=== PATIENT | female | born 1980 | race Caucasian/White ===

== ENCOUNTER 2024-11-21 13:16 | Emergency (ER) | payer SELFPAY ==
[2024-11-21] VITALS (13 sets, daily range): BP systolic 121–135; BP diastolic 79–89; PULSE 74–100; RESP 14–32; TEMP 36.6; O2SAT 96–98
--- NOTE | 2024-11-21 13:15 | RT.EKG_ITS ---
APPROVED REPORT Exam: Resting ECG Reason for Exam: Chest Pain Patient Location: E HR:84 bpm ECG Measurements Heart Rate 84 AXIS MS 139 P 64 QRSd 77 QRS 54 QT 366 T 20 QTc 434 Conclusion Sinus rhythm...normal P axis, V-rate 60- 99 Left atrial enlargement...P, P'>60mS, <-0.15mV V1 I have reviewed and interpreted ECG and agree with software generated interpretation.
--- NOTE | 2024-11-21 13:15 | DI.RAD_ITS ---
Exam(s) XR PORTABLE CHEST AP EXAM: XR PORTABLE CHEST AP CLINICAL HISTORY: cough, chest pain. TECHNIQUE: 2D digital imaging was performed. COMPARISON: No exams were available for comparison FINDINGS: Single AP portable view. Heart size is upper normal. The mediastinum is not widened. Lungs are clear. No infiltrates nor obvious pleural effusions. IMPRESSION: No acute pulmonary findings on this single AP portable view of the chest. DATA REPOSITORY: RADIATION DOSE DELIVERED:
[2024-11-21 13:50] LABS: Abs Immature Grans 0.04 10^3/uL (0.0-0.06); Absolute Basophil Count 0.04 10^3/uL (0.0-0.2); Absolute Eosinophil Count 0.23 10^3/uL (0.0-0.7); Absolute Lymphocyte Count 2.33 10^3/uL (1.2-3.4); Absolute Monocyte Count 0.52 10^3/uL (0.1-0.8); Absolute Neutrophil Count 3.44 10^3/uL (1.2-6.7); Basophils % 0.6 %; Eosinophils % 3.5 %; HCT 43.8 % (36.0-46.0); HGB 14.9 g/dL (11.2-15.7); Immature Grans % 0.6 %; Lymphocytes % 35.3 %; MCH 30.6 pg (27.0-33.0); MCV 90 fL (80-95); MPV 9.5 fL (8.0-11.0); Monocytes % 7.9 %; Neutrophils % 52.1 %; Platelet Count 262 10^3/uL (130-400); RBC 4.87 10^6/uL (3.93-5.22); RDW 12.8 % (11.7-14.6); RDW-SD 42.5 fL
--- NOTE | 2024-11-21 13:52 | ED.GENADUL_ITS ---
Discharge Plan Disposition Patient Disposition: Home Condition: Good Discharge Details Clinical Impression: Chest discomfort Primary Care Provider: Brea Escalante ED Provider: Tee Menendez Home Meds and New Rx's Prescriptions: No Action No Known Home Meds Discharge Instructions Instructions: Chest Pain, Adult ED Additional Instructions: At this time your workup has returned reassuring. There is no evidence of blood clot, pneumonia, cardiac abnormality, pancreatitis or other significant concerning problem. Your bedside echo showed no significant abnormality on our limited assessment. Please follow-up closely with your primary care provider. It may be prudent for further 24 to 48-hour Holter monitoring to evaluate for any dysrhythmia or atypical beats of your heart. If you notice any worsening of your symptoms, or any new symptoms such as vomiting, diarrhea, fever, chills, shortness of breath, chest pain, numbness, weakness, or fainting , please return immediately to the emergency department for reevaluation. Please follow up with your primary care provider as soon as possible for reassessment and reevaluation. As always, it was a pleasure participating in your medical care today. Referrals: Brea Escalante [Primary Care Provider] - Discharge Data Discharge Date/Time-TO BE ENTERED AT DEPARTURE: 11/21/24 15:51 HPI General Date/Time Provider Initiated Documentation: 11/21/24 13:26 . HPI Narrative: 43-year-old female with no significant past medical history presents today for evaluation of left-sided chest discomfort. Patient states that last night before going to bed she developed a pulsatile achy pain in her left chest that would last for about 30 seconds and then dissipate, it would come on and off every few minutes. There did not appear to be any aggravating or relieving factors. It eventually slowly improved. She went to bed and when she woke up she noticed that there was still a mild component but it was much more diminished compared to the previous night. Additionally she also noticed some achiness in her left chest today that seems to be perpetual compared to the intermittent symptoms are only present before. She denies any exertional discomfort, pleuritic component. Denies PE risk factors such as recent long car rides, immobilization, recent surgery, prior history of DVT or PE, family history of PE or DVT, morbid obesity, exogenous estrogen and smoking, hemoptysis, history of cancer. No other complaints at this time. Patient does smoke 2 to 3 cigarettes a day. She denies any personal history of lung cancer or cardiac disease. She does have distant family members with cardiac disease. No other complaints at this time. No calf tenderness. No cough or fever. Pain did not radiate to her arm neck or shoulders. Related Data Home Medications ?Medication ?Instructions ?Recorded ?Confirmed Unknown [No Known Home Meds] 11/21/24 11/21/24 Allergies Allergy/AdvReac Type Severity Reaction Status Date / Time Sulfa (Sulfonamide Allergy HIVES Unverified 11/21/24 13:24 Antibiotics) venom-honey bee (bee venom Allergy EXTREME Unverified 11/21/24 13:24 (honey bee)) SWELLING General Stated Complaint: Chest Pain BRIANA: 3 Exam Narrative Exam Narrative: 1.Const: Well-nourished, Well-developed, appearing stated age 2.Eyes: PERRL, no conjunctival injection, and symmetrical lids. 3.ENT: Atraumatic external nose and ears. Moist MM. Neck: Symmetric, trachea midline, No thyromegaly. 4.CVS: +S1/S2, Peripheral pulses 2+ and equal in all extremities. Brisk capillary refill in all extremities. Mild achiness on palpation of the left anterior chest wall, pain is not worsened with activation or movement of the pectoralis major or minor musculature. 5.RESP: Unlabored respiratory effort. Clear to auscultation bilaterally. No wheezes rales or rhonchi 6.GI: Soft, Nontender/Nondistended, No hepatosplenomegaly. No guarding or rebound. 7.MSK: Normocephalic/Atraumatic, Extremities w/o deformity or ttp No cyanosis or clubbing, Normal movement of all extremities 8.Skin: Warm, Dry. No rashes or lesions. No evidence of shingles 9.Neuro: appointment specialist II-XII grossly intact. Sensation grossly intact, no focal neurologic deficits. 10.Psych: (AAO) x3. Appropriate mood and affect Course Vital Signs Vital signs: Vital Signs Temperature 36.6 C 11/21/24 13:21 Pulse 100 H 11/21/24 13:21 Respiratory Rate 14 11/21/24 13:21 Blood Pressure 135/89 11/21/24 13:21 Pulse Oximetry 98 11/21/24 13:21 Temperature 36.6 C 11/21/24 13:21 Temperature Source Oral 11/21/24 13:21 Pulse 100 H 11/21/24 13:21 Respiratory Rate 14 11/21/24 13:21 Respiratory Effort Normal, Non-Labored 11/21/24 13:41 Respiratory Depth Normal 11/21/24 13:41 Respiratory Pattern Normal 11/21/24 13:41 Blood Pressure 135/89 11/21/24 13:21 Blood Pressure Position Sitting 11/21/24 13:21 Pulse Oximetry 98 11/21/24 13:21 Oxygen Delivery Method Room Air 11/21/24 13:21 Oxygen Flow Rate 0 11/21/24 13:21 Pain Level 5 11/21/24 13:21 Comment denies otc medications for symptoms 11/21/24 13:21 Medical Decision Making 43-year-old female with no significant past medical history presents today for evaluation of left-sided chest discomfort. Patient states that last night before going to bed she developed a pulsatile achy pain in her left chest that would last for about 30 seconds and then dissipate, it would come on and off every few minutes. There did not appear to be any aggravating or relieving factors. It eventually slowly improved. She went to bed and when she woke up she noticed that there was still a mild component but it was much more diminished compared to the previous night. Additionally she also noticed some achiness in her left chest today that seems to be perpetual compared to the intermittent symptoms are only present before. She denies any exertional dis comfort, pleuritic component. Denies PE risk factors such as recent long car rides, immobilization, recent surgery, prior history of DVT or PE, family history of PE or DVT, morbid obesity, exogenous estrogen and smoking, hemoptysis, history of cancer. No other complaints at this time. Patient does smoke 2 to 3 cigarettes a day. She denies any personal history of lung cancer or cardiac disease. She does have distant family members with cardiac disease. No other complaints at this time. No calf tenderness. No cough or fever. Pain did not radiate to her arm neck or shoulders. Exam demonstrates well-appearing female, no guarding or rebound. No rash. No pulse asymmetry. No pain in the left pectoralis region with activation of pectoralis major minor. Reproducible pain though is noted with generalized mild palpation of the left chest wall anteriorly. Differential is broad but includes Prinzmetal's angina, precordial catch syndrome, less likely pneumothorax or PE. Cardiac ACS is unlikely given lack of risk factors. However we will evaluate for concerning etiologies, give aspirin, Lidoderm patch, get a bedside echo, monitor closely and reassess. EKG shows no evidence of STEMI. 4:44 PM Chest x-ray negative for acute process, bedside echo and bedside pulmonary exam from ultrasound shows no evidence of acute abnormality, distention, pericardial tamponade, effusion or other abnormality. Laboratory workup shows normal D- dimer, patient negative both naturally with a level of 258, as well as demonstrating no active clinical signs to demonstrate concern for significant PE. Electrolytes normal, troponin x 2 normal. Both less than 4, lipase normal. Patient feels well, pain notably improved. No evidence to suggest ACS, or other acute life-threatening etiology. Patient will be discharged home. Recommend potential Holter at home. Patient declined Lidoderm patch. I have extensively reviewed the treatment plan and discharge instructions with the patient. I have addressed all patient concerns at this time. The patient was made aware of what symptoms to monitor for that would warrant a return to the emergency department. Discussed the plan with the patient, they demonstrate verbal understanding and agreement with our assessment and plan at this time. The documentation in this chart was dictated using [employer] dictation software. Please excuse any dictation errors. Quality:SDOH Health Related Social Needs: No Data to Display PFSH All Active Problems (Updated 11/21/24 @ 15:42 by Tee Menenedz DO) Chest discomfort (Acute) Vaginal delivery (Active 05/12/13) 3RD DEGREE TEAR False labor (Active 05/10/13) Social History Smoking/Tobacco Use Status: Former Tobacco Use Smoking risk assessment performed?: Yes Alcohol Intake: never Drug use: Never Substance use type: does not use Housing: house Do you feel safe at home: Yes Do you feel safe in your relationship?: Yes POCUS Exam (ED) Limited Cardiac Exam DATE OF EXAM: 11/21/24 TIME OF EXAM: 16:18 PROVIDER THAT PERFORMED THE STUDY: Tee Menendez REASON FOR EXAM: Chest pain VISUALIZED STRUCTURES: Left atrium, Left ventricle, Right ventricle, Mitral valve and Interventricular septum VIEW OBTAINED: Parasternal long-axis and Parasternal short-axis PERTINENT FINDINGS/IMPRESSION: No apparent abnormalities Exam complete Limited Thoracic Lung Exam DATE OF EXAM: 11/21/24 TIME OF EXAM: 16:22 PROVIDER THAT PERFORMED THE STUDY: Tee Menendez IS THIS A REPEAT EXAM DURING THIS ENCOUNTER: No REASON FOR EXAM: Other (chest pain) indication: chest pain VISUALIZED STRUCTURES: right anterior and left anterior PERTINENT FINDINGS/
[2024-11-21 14:13] LABS: ALT 26 U/L (14-59); AST 13 U/L (15-37); Albumin 3.9 g/dL (3.4-5.0); Alkaline Phosphatase 65 U/L (46-116); Anion Gap 8.6 mmol/L (3-11); BUN 10 mg/dL (7-18); Bilirubin, Total 1.02 mg/dL (0.2-1.0); CO2 25.4 mmol/L (21.0-32.0); CREATININE 0.9 mg/dL (0.55-1.02); Chloride 105 mmol/L (98-107); Estimated GFR 80.84 (mL/min/1.73m2); Glucose 104 mg/dL (74-106); Lipase 26 U/L (<78); Potassium 3.7 mmol/L (3.5-5.1); Sodium 139 mmol/L (136-145); Total Protein 7.7 g/dL (6.4-8.2)
[2024-11-21 14:16] LABS: Troponin I < 4 ng/L (<or=51)
[2024-11-21 14:18] LABS: Calcium 9.5 mg/dL (8.5-10.1)
[2024-11-21 14:31] LABS: D-Dimer 258 ng/mlFEU (<500)
[2024-11-21 15:08] LABS: Troponin I < 4 ng/L (<or=51)
[2024-11-21] MEDS: Aspirin 325 MG TAB PO (15:21)
== END 2024-11-21 15:51 | disposition home or self-care (01) ==
PROVIDERS: Emergency Provider Student in an Organized Health Care Education/Training Program; PCP Family Medicine
DX: R05.1 Acute cough; R07.89 Other chest pain; F17.210 Nicotine dependence, cigarettes, uncomplicated
CPT/HCPCS: 76604; 80053; 83690; 87637; 93005; 93308; 99284; 71045; 84484; 85025; 85379; 93010